=== PATIENT | female | born 1975 | race Two or more races ===

== ENCOUNTER 2020-02-17 18:10 | Inpatient (IN) | payer OTHER ==
[~2020-02-17] VITALS: Ht 165.1 cm; Wt 102.1 kg
[~2020-02-17 18:10] MED LIST: ANTICONCEPTIVO; IRON1 TA1
--- NOTE | 2020-02-17 20:02 | NUR ---
PTE ALERTA Y ORIENTADA X3, SE LE MITZY MUESTRAS DE LAB. DESTINY ORDEN MEDICA BAJO MEDIDAS ASPETICAS. SE CANALIZA AREA MADDY DE EDEMA Y DE ENROJECIMIENTO. SE LE ADMINISTRA MEDICAMENTO DESTINY ORDEN MEDICA Y SE EDUCA SOBRE TRATAMIENTO MEDICO.
--- NOTE | 2020-02-17 23:34 | NUR ---
PTE RE EVALUADA POR EL DR. LEE Y CONSULTADA CON MEDICINA INTERNA Y TRABAJO SOCIAL. SE ORIENTA AL PACIENTE SOBRE EL TX. SE EXTRAEN MUESTAS DE SARAH BAJO MEDIDAS ASEPTICAS SE ROTULAN Y ENVIAN AL LABORATORIO. SE ADMINISTRAN MEDICAMENTOS DESTINY ORDEN MEDICA.
--- NOTE | 2020-02-18 00:15 | NUR ---
SE RECIBE PTE DEL TURNO ANTERIOR, ALERTA Y ORIENTADA X 3 ESFERAS, EN LISA NICVEL MAS BAJO, EN COMPANIA DE FAMILIAR. SE OBSERVA CON BUEN PATRON RESPIRATORIO Y PIEL TIBIA AL TACTO. IV PATENTE Y MADDY DE EDEMA O ERITEMA CON 0.9% NSS @200ML/HR. PENDIENTE A RESULTADOS DE LABORATORIO Y CONSULTA CON A DRA FREEMAN. SE MANTIENE BAJO OBSERVACION.
--- NOTE | 2020-02-18 07:23 | NUR ---
SE RECIBE PTE FEMENINA DE 44 YRS ALERTA CONCIENTE Y TRANQUILA EN LISA CON BARABDA ELEVADA,PTE CON IVF'S PATENTE Y MADDY DE EDEMA .9NSS A 200 ML HR. PTE EN ESPERA DE MEDICO CONSULTOR PETE SUN Y PENDIENTE A TRABAJADORA SOCIAL PARA EL PROCESO DE PLAN MEDICO.SE LE DA SEGUIMINEOT
== END 2020-02-25 14:50 | disposition home or self-care (01) | DRG 419 ==
LOC: ER 18:10 → SEC-K 02-18 08:14 → MEDI 02-18 08:14 → MEDJ 02-18 11:09 → MEDI 02-18 12:26
PROVIDERS: Surgery; ADMIT Internal Medicine; ATTEND Internal Medicine
PROC: BW40ZZZ Ultrasonography of Abdomen (ICD-10-PCS; 2020-02-18)
PROC: BF37ZZZ Magnetic Resonance Imaging (MRI) of Pancreas (ICD-10-PCS; 2020-02-18)
PROC: 0FT44ZZ Resection of Gallbladder, Percutaneous Endoscopic Approach (ICD-10-PCS; principal; 2020-02-23 13:00)
DX: K80.10 Calculus of gallbladder with chronic cholecystitis without obstruction (principal); K52.9 Noninfective gastroenteritis and colitis, unspecified

== ENCOUNTER → 2022-11-05 | Emergency (ER) | payer OTHER | END | disposition home or self-care (01) | LOC: ER 15:01 | DX: S29.8XXA Other specified injuries of thorax, initial encounter (principal); W18.2XXA Fall in (into) shower or empty bathtub, initial encounter; Y93.F1 Activity, caregiving, bathing; Y92.012 Bathroom of single-family (private) house as the place of occurrence of the external cause ==